=== PATIENT | male | born 1955 | race Two or more races ===

== ENCOUNTER 2022-07-23 10:13 | Emergency (ER) | payer OTHER ==
[~2022-07-23] VITALS: Ht 177.8 cm; Wt 108.9 kg
[2022-07-23] MEDS ORDERED: COZAAR25 MG PO (10:32)
[2022-07-23] MEDS ORDERED: COZAAR100 MG PO (10:33)
== END 2022-07-23 12:57 | disposition home or self-care (01) ==
LOC: ER 10:13
DX: U07.1 COVID-19 (principal)

== ENCOUNTER 2022-07-26 14:44 | Outpatient (CLI) | payer OTHER ==
[~2022-07-26 14:44] MED LIST: COZAAR100 MG PO; COZAAR25 MG PO
== END 2022-07-26 17:16 | disposition home or self-care (01) ==
LOC: ASH CLINIC 14:44
PROVIDERS: ATTEND General Practice
DX: U07.1 COVID-19 (principal)

== ENCOUNTER 2022-07-26 15:51 | Emergency (ER) | payer OTHER ==
[~2022-07-26] VITALS: Ht 177.8 cm; Wt 108.9 kg
== END 2022-07-26 20:43 | disposition home or self-care (01) ==
LOC: ER 15:51
DX: U07.1 COVID-19 (principal); T45.8X1A Poisoning by other primarily systemic and hematological agents, accidental (unintentional), initial encounter; J70.9 Respiratory conditions due to unspecified external agent; I10 Essential (primary) hypertension

== ENCOUNTER 2023-05-14 12:31 | Emergency (ER) | payer OTHER, BC ==
[~2023-05-14] VITALS: Ht 177.8 cm; Wt 108.9 kg
== END 2023-05-14 13:14 | disposition home or self-care (01) ==
LOC: ER 12:31
DX: U07.1 COVID-19 (principal); Z91.040 Latex allergy status; I10 Essential (primary) hypertension; I25.10 Atherosclerotic heart disease of native coronary artery without angina pectoris